=== PATIENT | male | born 2005 | race Hispanic/Latino ===

== ENCOUNTER 2025-01-11 15:44 | Emergency (ER) | payer SELFPAY ==
[~2025-01-11] VITALS: Ht 170.2 cm; Wt 95.3 kg
--- NOTE | 2025-01-11 15:50 | ERN ---
ED Note History of Present Illness Stated Complaint: COLD SWEATS, FEVER, BODY ACHE Chief Complaint: Sore Throat Time Seen by MD: 15:46 Dictation: PATIENT IS A 19-YEAR-OLD MALE COMING IN WITH FLU-LIKE SYMPTOMS TO INCLUDE BODY ACHES, FEVER CHILLS, SORE THROAT WITH PAINFUL SWALLOWING AND DRY COUGH FOR TWO DAYS. NO NAUSEA VOMITING NO DIARRHEA NO LOSS OF TASTE OR SMELL. NO PRIMARY CARE DOCTOR AND HE STATES HE HAS NOT TAKEN ANYTHING PRIOR TO ARRIVAL TO THE HOSPITAL. Allergies: Coded Allergies: No Known Allergies (Unverified Allergy, Unknown, 01/11/25) Home Meds Active Scripts Amoxicillin/Potassium Clav (Amox Tr-K Clv 875-125 mg Tab) 875 Mg-125 Mg Tablet, 1 EACH PO BID for 10 Days, #20 TAB 0 Refills Prov:NICKOLAS ANDERSON TABLET TECHNICIAN 01/11/25 Ibuprofen (Ibuprofen 800 mg Tab) 800 Mg Tab, 800 MG PO Q8H PRN for fever or pain, #30 TAB 0 Refills Prov:NICKOLAS ANDERSON TABLET TECHNICIAN 01/11/25 Past Medical History RN Note Reviewed/Agreed w/PFSH: Yes Review of System Dictation CONSTITUTIONAL: NEGATIVE EXCEPT FOR HPI FEVER CHILLS MALAISE HEAD/FACE: NEGATIVE EXCEPT FOR HPI EENT: NEGATIVE EXCEPT FOR HPI SORE THROAT RESPIRATORY: NEGATIVE EXCEPT FOR HPI DRY COUGH GASTROINTESTINAL/ABDOMINAL: NEGATIVE EXCEPT FOR HPI GENITOURINARY: NEGATIVE EXCEPT FOR HPI MUSCULOSKELETAL: NEGATIVE EXCEPT FOR HPI INTEGUMENTARY: NEGATIVE EXCEPT FOR HPI NEUROLOGICAL/PSYCH: NEGATIVE EXCEPT FOR HPI HEMATOLOGIC/LYMPHATIC: NEGATIVE EXCEPT FOR HPI ALL SYSTEMS NEGATIVE, EXCEPT NOTED ABOVE. 13 POINT REVIEW OF SYSTEMS ASSESSED AND ALL NEGATIVE EXCEPT FOR ABOVE. Initial Vital Sign VS Vital Signs Date Time Temp Pulse Resp B/P (MAP) Pulse Ox O2 Delivery O2 Flow Rate FiO2 01/11/25 15:46 101.1 110 18 168/88 97 Room Air 0 01/11/25 18:31 21 Physical Exam Dictation VITAL SIGNS REVIEWED GENERAL APPEARANCE: ALERT, ORIENTED X 3, MY ACUTE DISTRESS, WELL DEVELOPED, NOURISHED. HEAD AND FACE: NON-TRAUMATIC. EYES: PERRL, PINK CONJUNCTIVAS, EYELID NO TRAUMA, ANTERIOR CHAMBER WITH ARCUS SE NILIS. EARS: PINNAS INTACT AND NO SIGNS OF TRAUMA OR ERYTHEMA EAR CANALS CLEAR AND NO DISCHARGE TM NO ERYTHEMA NOSE: NO DISCHARGE, NO BLEEDING. OROPHARYNX: MOUTH NORMAL, TONGUE PINK, PHARYNX CLEAR,NO ERYTHEMA, TONSILS 2/4 BILATERALLY AND CRYPTIC,, NO ABSCESSES NOTED, MUCOUS MEMBRANE MOIST UVULA MIDLINE VOICE IS CLEAR NECK: SUPPLE, NON-TENDER, NO THYROMEGALY, NO MASSES, NO JVD, NO BRUITS BREAST:DEFERRED CHEST:NO TENDERNESS, NO CREPITUS, NO PARADOXICAL MOVEMENT, NO RETRACTIONS LUNGS:CLEAR, WELL-VENTILATED, SYMMETRIC, NO RALES, NO WHEEZING, NO RHONCHI, NO STRIDOR, GOOD BREATH SOUNDS BILATERALLY HEART: REGULAR RATE, REGULAR RHYTHM, NO MURMUR, NO GALLOPS VASCULAR: NO PERIPHERAL EDEMA, ABDOMEN: SOFT, POSITIVE BOWEL SOUNDS, NONDISTENDED, NO GUARDING, NONTENDER, NO REBOUND, NO MASSES NO HEPATOMEGALY, NO SPLENOMEGALY, NO GONZALEZ'S SIGN, NO HERNIAS. RECTAL: DEFERRED GENITAL: DEFERRED NEUROLOGICAL: NORMAL SPEECH, MOTOR FUNCTION INTACT, SENSORY FUNCTION INTACT MUSCULOSKELETAL: NECK NONTENDER, FULL RANGE OF MOTION, BACK NONTENDER, FULL RANGE OF MOTION, EXTREMITIES: NONTENDER, FULL RANGE OF MOTION SKIN: COLOR PINK, DRY, NO TURGOR, NO RASH, NO LACERATIONS, NO ABRASIONS, NO CONTUSIONS. LYMPHATIC: DEFERRED Results (Laboratory/Radiology) Laboratory/Radiology Laboratory Tests Test 01/11/25 15:50 Influenza Type A Antigen Negative For Type A Influenza Type B Antigen Negative For Type B SARS-CoV-2 Antigen (Rapid) PRESUMPTIVE NEGATIVE Group A Streptococcus Rapid negative (NEGATIVE) Labs Reviewed?: Yes ED Course ED Course Orders Procedure Category Date Status Time Covid19 (Sars Antigen LAB 01/11/25 Complete Rapid) 15:48 Influenza Type A & B, LAB 01/11/25 Complete Rapid 15:48 Rapid (Group A Strep) LAB 01/11/25 Complete 15:48 Acetaminophen 500mg PHA 01/11/25 Complete Tab (Tylenol 500mg T 16:00 Current Medications Medications (Trade) Dose Ordered Sig/Mark Route PRN Reason Start Time Stop Time Status Last Admin Dose Admin Acetaminophen (TYLenol 500MG TAB) 1,000 mg ONCE ONCE PO 01/11/25 16:00 01/11/25 16:01 DC 01/11/25 18:02 Vital Signs Date Time Temp Pulse Resp B/P (MAP) Pulse Ox O2 Delivery O2 Flow Rate FiO2 01/11/25 18:31 100.0 92 18 152/74 97 Room Air* 0 21 01/11/25 15:46 101.1 110 18 168/88 97 Room Air 0 1658/ALL LABS ARE NEGATIVE, PATIENT WILL BE DISCHARGED WITH ACUTE TONSILLITIS UNSPECIFIED PRESCRIBED AUGMENTIN AND IBUPROFEN TOLD TO FOLLOW UP WITH HIS PRIMARY CARE DOCTOR Medical Decision Making MDM MEDICAL DISCHARGE MAKING BASED ON SWABS FOR FLU COVID AND STREP. ALL SWABS NEGATIVE PATIENT WILL BE DISCHARGED HOME WITH ACUTE TONSILLITIS UNSPECIFIED DIAGNOSES PRESCRIBED AUGMENTIN 875AND IBUPROFEN 800. DX & DISP Disposition: Discharge Departure Impression: Primary Impression: Acute tonsillitis, unspecified Additional Impression: Fever Condition: Stable Scripts Amoxicillin/Potassium Clav (Amox Tr-K Clv 875-125 mg Tab) 875 Mg-125 Mg Tablet 1 EACH PO BID for 10 Days, #20 TAB 0 Refills Prov: NICKOLAS ANDERSON TABLET TECHNICIAN 01/11/25 Ibuprofen (Ibuprofen 800 mg Tab) 800 Mg Tab 800 MG PO Q8H PRN for fever or pain, #30 TAB 0 Refills Prov: NICKOLAS ANDERSON TABLET TECHNICIAN 01/11/25 Additional Instructions: FOLLOW-UP WITH PRIMARY CARE PROVIDER IN 1 TO 2 DAYS. TAKE MEDICATIONS DIRECTED HERE IN THE EMERGENCY ROOM. OKAY TO CONTINUE HOME MEDICATIONS UNLESS OTHERWISE DISCUSSED DURING YOUR VISIT IN THE EMERGENCY ROOM TODAY. RETURN TO YOUR NEAREST EMERGENCY ROOM IF SYMPTOMS WORSEN OR IF THERE IS NO IMPROVEMENT. CALL 911 IF YOU NEED IMMEDIATE ASSISTANCE. TAKE TYLENOL OR MOTRIN [id number] NEEDED AND IF NO CONTRAINDICATIONS ARE PRESENT. INCREASE ORAL HYDRATION. A WOUND CULTURE OR URINE CULTURE WAS ORDERED HERE IN THE EMERGENCY ROOM DEPARTMENT PLEASE FOLLOW-UP WITH PRIMARY CARE PROVIDER AND ADVISE THEM TO GET REPEAT PORTS FROM OUR FACILITY. IF YOU HAD ANY ADAMA WRAP/SPLINTS THAT WERE APPLIED HERE, PLEASE DO NOT REMOVE THEM UNTIL YOU SEE YOUR PRIMARY CARE OR SPECIALTY. TAKE AUGMENTIN DIRECTED UNTIL GONE. TAKE IBUPROFEN NEEDED FOR FEVER PAIN WITH FOOD. INCREASE YOUR WATER INTAKE. SEE YOUR PRIMARY CARE DOCTOR FOR FOLLOW UP IN 1-2 DAYS Time of Disposition: 16:58 I have reviewed the case, and I agree with, Diagnosis and Plan I performed a substantive portion of the visit. I have reviewed and personally made and approve the management plan that is documented in the notes by myself with RANDA/resident. I acknowledged full responsibility for the patient's manag ement plan. NICKOLAS ANDERSON NP Jan 11, 2025 15:50 ELSA QUINONEZ DO Jan 11, 2025 18:46
[2025-01-11 16:38] LABS: RAPID GROUP A STREP negative (NEGATIVE)
[2025-01-11 16:53] LABS: COVID19 (SARS ANTIGEN RAPID) PRESUMPTIVE NEGATIVE (NEGATIVE); INFLUENZA TYPE A Negative For Type A (NEGATIVE); INFLUENZA TYPE B Negative For Type B (NEGATIVE)
[2025-01-11] MEDS ORDERED: IBUP-2077 PO (16:58)
[2025-01-11] MEDS ORDERED: AMOX1TAB16 PO (16:58)
[2025-01-11] MEDS: acetaMINOPHEN 500 MG TABLET PO ONE (18:02)
[2025-01-11 18:31] VITALS: BP 152/74; PULSE 92; RESP 18; TEMP 100; O2SAT 97
== END 2025-01-11 18:35 | disposition home or self-care (01) ==
LOC: EDH 15:44
DX: J03.90 Acute tonsillitis, unspecified (principal); Z20.822 Contact with and (suspected) exposure to COVID-19; Z79.899 Other long term (current) drug therapy
CPT/HCPCS: 87426; 87804; 87880; 99283